=== PATIENT | male | born 2000 | race Caucasian/White ===

== ENCOUNTER 2021-03-08 14:29 | Emergency (ER) | payer MEDICAID, SELFPAY ==
[2021-03-08 14:34] VITALS: BP 142/89; PULSE 98; RESP 20; TEMP 36.8; O2SAT 98
[2021-03-08 15:09] LABS: Source Nasal/Nares
[2021-03-08 15:33] LABS: Abs Immature Grans 0.02 10^3/uL (0.0-0.06); Absolute Basophil Count 0.01 10^3/uL (0.0-0.2); Absolute Eosinophil Count 0.06 10^3/uL (0.0-0.7); Absolute Lymphocyte Count 1.52 10^3/uL (1.2-3.4); Absolute Monocyte Count 0.52 10^3/uL (0.1-0.8); Basophils % 0.1; Eosinophils % 0.8; HCT 45.7 % (40.0-50.0); HGB 14.5 g/dL (13.5-17.5); Immature Grans % 0.3; Lymphocytes % 20.7; MCH 24.9 pg (27.0-33.0); MCHC 31.7 % (32.0-36.0); MCV 78.5 fL (80-95); MPV 10.3 fL (8.0-11.0); Monocytes % 7.1; Nucleated RBC 0 %; Platelet Count 220 10^3/uL (130-400); RBC 5.82 10^6/uL (4.36-5.78); RDW 12.5 % (11.8-14.1); RDW-SD 35.4 fL; WBC 7.33 10^3/uL (4.4-10.8)
[2021-03-08 15:33] LABS: *AMPHETAMINES SCREEN URINE Negative (Negative); *BARBITURATES SCREEN URINE Negative (Negative); *BENZODIAZEPINES SCREEN URINE Negative (Negative); Cannabinoids THC Positive (Negative); Cocaine Screen,Urine Negative (Negative); METHADONE URINE SCREEN Negative (Negative); OPIATES URINE SCREEN Negative (Negative)
[2021-03-08 15:42] LABS: Tricyclic Antidepressants Negative (Negative)
[2021-03-08 16:01] LABS: COVID-19 PCR Negative (Negative)
[2021-03-08 16:03] LABS: ALT 18 U/L (16-63); AST 18 U/L (15-37); Albumin 4.6 g/dL (3.4-5.0); Alkaline Phosphatase 63 U/L (46-116); Anion Gap 10.5 mmol/L (3-11); BUN 12 mg/dL (7-18); Bilirubin, Total 0.5 mg/dL (0.2-1.0); CO2 26.5 mmol/L (21.0-32.0); CREATININE 1.1 mg/dL (0.70-1.30); Calcium 9.2 mg/dL (8.5-10.1); Chloride 105 mmol/L (98-107); Glucose 102 mg/dL (74-106); Potassium 3.7 mmol/L (3.5-5.1); Sodium 142 mmol/L (136-145); TSH (W/Ref FT4) 1.05 uIU/mL (0.36-3.74)
[2021-03-08 16:06] LABS: Salicylate 2.9 mg/dL (<2.8)
[2021-03-08 16:08] LABS: Acetaminophen < 2 ug/mL (10-30)
[2021-03-08 16:34] LABS: ETHANOL BLOOD < 3.0 mg/dL (<10)
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
--- NOTE | 2021-03-08 16:51 | PDOC.MHCN_ITS ---
Date of service: 03/08/21 Time of Service: 16:51 Mental Health Crisis Note Presenting Issue How did you arrive at the ED and why did you come: Client presented to [facility] ED with stating that he has a history of MH issues that has been untreated for quite a long time and wants to be able to get the help that he needs. Precipitating Factors Client denies SI, however states that he has some HI towards others an cannot guarantee what would happen if he saw them. Disposition BEHAVIOR: Client is laying down in hospital bed dressed in proper paper hospital attire when this assembly instructions writer arrives via zoom. Client states that he is really struggling and wants to get the help that he needs and be able to move forward with life. Client states that he feels like he is stuck right now and sees no positives in the future if he continues to head down the road that he is on. Client engages with this assembly instructions writer, gives good explanations and answers all ques tions that are asked of him. EYE CONTACT: Client makes good eye contact. MOOD: Clients mood appears to be depressed and hopeless. AFFECT: Flat Affect APPETITE: Client states that his appetite has not been good, he states that he eats one meal about every 3 days. SLEEP(trouble falling/staying asleep: Client states that he has not been sleeping well, averaging about 2 hours of sleep a night if that. Plan Client will stay at [facility] awaiting voluntary placement. Client states that he does not feel safe leaving the hospital and does not guarantee that he would be safe. Update with Dr. Fernandez and Ed staff. Referrals will be sent to , [facility], [facility], and [facility]. Signature Clinician's Name/Title: Merle Philippe AUGUSTO Emergency Clinician
[2021-03-08] MEDS: cloNIDine 0.1 MG TAB (21:14)
[2021-03-08] MEDS: QUEtiapine 25 MG TAB (21:16)
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
[2021-03-08 21:38] VITALS: BP 145/83; PULSE 68; RESP 18; O2SAT 98
[2021-03-09] MEDS: Venlafaxine 150 MG CAPCR PO (10:30)
[2021-03-09] MEDS: QUEtiapine 25 MG TAB 50 MG PO ×2 (10:30→21:10)
[2021-03-09] MEDS: cloNIDine 0.1 MG TAB PO ×3 (11:18→21:10)
--- NOTE | 2021-03-09 13:22 | CMSP_ITS ---
- If Service Date Differs Date of service: 03/09/21 Time of Service: 13:22 Care Management Safety Plan Status: Voluntary - Reason for Wait Reason for Wait: Inpatient Admission CHIEF COMPLAINT: Bossman is a 20 year old male who is currently homeless. He reports a long history of psychiatric problems and questions whether he may have schizophrenia, as his father is reportedly schizophrenic. Bossman presented to the ED yesterday due to depression and his wish to seek a voluntary hospitalization. He met with Dr. Garcia via telehealth yesterday. Dr. Garcia recommended starting him on Venlafaxine XR 150 mg QAM, Clonidine 0.1 mg TID, and Seroquel 50 mg BID. VOLUNTARY FOR INPATIENT PSYCHIATRIC STABILIZATION. Patient is appropriate in all interactions since arriving at [facility]; Pt has demonstrated appropriate coping and communication skills, has articulated his or her needs and concerns and is fully engaged during staff interactions. Safety plan has been established with patient, and care team, to adhere to patient goals, identify restrictions based on behavioral status, address nutrition, and determine allowed personal belongings, tools for hygiene and personal care. Determine level of activity including ambulation, level of supervision, visitors, and determine privileges based on behaviors and level of engagement by pt. SAFETY PLAN: 1. Will remain on suicide precautions. In Paper Clothes 2. Will remain in room under direct supervision of one-on-one staff at all times provided by CPSO, METER CHANGES RECORDS CLERK, PULL SOCKET ASSEMBLER sign writer letterer or painter. 3. May have paper cups, plates, finger foods as well as a cardboard spoon with which to eat meals. 4. Follow [facility] Management of the Admitted Behavioral Health Patient policy. 5. May shower with supervision and at RN discretion. 6. No personal belongings 7. Visitors-No visitors at this time 8. Activities: Soft cart items, music tablet, and other activities at RN discretion. 9. Bathroom privileges with escort in the ED. If moved to Med/Surg, may use bathroom available in room without restriction. 10. Phone: May use hospital phone for incoming and outgoing phone calls at RN discretion. 11. Due to VOLUNTARY status, if patient wishes to leave [facility], staff will contact [facility] Crisis Screener ([phone]) and On-Call Engineering Model Maker ([phone]) as soon as possible. In the event of elopement, notify [facility] Police ([phone]). Patient is currently voluntarily at [facility] and seeking inpatient admission when a bed becomes available. [facility] Frontline Dope Heater will continue seeking placement. Please contact the Couples Therapist Engineering Model Maker ([phone]) and [facility] Dope Heater ([phone]) for any needed changes in the Safety Plan. Safety plan has been provided to interdepartmental care team.
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
--- NOTE | 2021-03-09 16:37 | W.PSYCHFU ---
Date of Service Date of service: 03/09/21 Time of Service: 16:37 Assessment and Plan Assessment and plan (1) Depression: Status: Chronic Assessment and plan: Continue current medicaitons and safety protocols Disposition to inpatient psychiatry per crisis recommendations Follow up 03/10 at 12:00 PM Psychiatry Subjective Narrative:: Seen in follow up by telemdicine. reports that medications ahve helped him mellow out; I feel kind of peaceful. Denies active SI. Sleep was improved. Mood is content for now. Inquires about ppossible diagnosis of schizophrenia stating his father had schizophrenia. He is counseled that this is possible, though more information would be needed. He was grossly incooperative with [facility] crisis service evaluation. Medications have been helpful and well toelrated thus far. He has had difficulty eating, stating I think I have an eating disorder. He states he feels nauseated when he tries to eat. Regards to drug use, he tstaes he uses about 1 ounce of cannabis per week. Based on this he is advised that some of his current discomfort and appetite changes may be related to cannabis withdrawal. He indicates not knowing such things are possible. I suggest continuing current medcaitons withou change for the time being and he agreees. Exam Psych Appearance: other (hospital scrubs, marginal hygine. No psychomotor agitations. ) Mental Status: other (Kind of peaceful) Speech and Movement: speech and movement normal Mood: other (Kind of peaceful) Affect: normal affect Attitude: other (superficially cooperative) Thought Process: normal Thought Content: normal Insight: fair Judgment: fair Objective Medications: Active Inpatient Medications Report Generic Name Dose Route Start Last Admin Trade Name Freq PRN Reason Stop Dose Admin Clonidine 0.1 mg 03/09/21 08:30 03/09/21 11:18 Clonidine 0.1 Mg Tab PO 0.1 mg TID TIFFANY Administration Quetiapine Fumarate 50 mg 03/09/21 08:30 03/09/21 10:30 Quetiapine 25 Mg Tab PO 50 mg BID TIFFANY Administration Venlafaxine HCl 150 mg 03/09/21 08:30 03/09/21 10:30 Venlafaxine 150 Mg Capcr PO 150 mg QAM TIFFANY Administration Discontinued Medications Generic Name Dose Route Start Last Admin Trade Name Freq PRN Reason Stop Dose Admin Ondansetron HCl 4 mg 03/09/21 14:00 Ondansetron O.D.T. 4 Mg Tabef PO 03/09/21 14:01 NOW ONE Vitals: Vital Signs - 24 hr 03/08/21 21:38 Pulse 68 Respiratory Rate 18 Blood Pressure 145/83 H Pulse Oximetry 98 Review of Systems All systems reviewed & are unremarkable except as noted in HPI and below
[2021-03-09] MEDS: Ondansetron O.D.T. 4 MG TABEF PO (17:17)
[2021-03-09 20:59] VITALS: BP 102/63; PULSE 48; RESP 16; TEMP 36.8; O2SAT 95
[2021-03-10] MEDS: Venlafaxine 150 MG CAPCR PO (10:48)
[2021-03-10] MEDS: cloNIDine 0.1 MG TAB PO (10:49)
[2021-03-10] MEDS: QUEtiapine 25 MG TAB 50 MG PO (10:49)
[2021-03-10 10:57] VITALS: BP 125/82; PULSE 56; RESP 18; TEMP 36.6; O2SAT 98
--- NOTE | 2021-03-10 13:02 | CMPROGNOTE_ITS ---
- If Service Date Differs Date of service: 03/10/21 Time of Service: 13:02 Care Management Progress Note S/O: Bossman is lying in bed when CM comes to meet with him. He is pleasant and easily engages in conversation. CM advises him that he has been accepted by the [facility] and will be transported by [facility] at some point today. Bossman is looking forward to beginning treatment. He requests a shower but is understanding when told that a shower is not possible at this time due to the vo lume in the ED and his nurse's inability to accompany him to the shower room. He then asks to make a phone call and is provided a hospital phone. A: Bossman is a 20 year old male admitted to [facility] on 03/08/2021 for a psychiatric evaluation. Plan/Disposition: Bossman is accepted for a voluntary admission at [facility]. Transport to the facility is provided by [facility]'s Office. Bossman will follow up with his community providers and discharge plan of care as directed by [facility] upon discharge from the facility. - Status Status: Voluntary - Reason for Wait Reason for Wait: Inpatient Admission ([facility])
[2021-03-10 14:23] VITALS: BP 125/82; PULSE 56; RESP 18; TEMP 36.6; O2SAT 98
== END 2021-03-10 14:22 | disposition short-term general hospital (02) ==
PROVIDERS: Student in an Organized Health Care Education/Training Program; Emergency Provider Physician Assistant
DX: F41.8 Other specified anxiety disorders (principal); R45.850 Homicidal ideations; Z65.2 Problems related to release from prison; Z59.01 Sheltered homelessness; Z20.822 Contact with and (suspected) exposure to COVID-19; Z03.818 Encounter for observation for suspected exposure to other biological agents ruled out
CPT/HCPCS: 36415; 80053; 80307; 87635; 99285; Q3014; 80320; 80329; 84443; 85025; 99284